=== PATIENT | female | born 1955 | race Caucasian/White ===

== ENCOUNTER 2021-08-31 17:52 | Inpatient (IN) ==
[2021-08-31] MEDS ORDERED: NS 0.9% 1000 ml BAG 1,000 ML IV ONE (18:52)
[2021-08-31 19:00] LABS: ABS Eosinophils 0.1 10^3/ul (0-0.6); ABS Lymphocytes 1.5 10^3/ul (1.0-4.8); ABS Monocytes 0.4 10^3/ul (0-0.8); ABS Neutrophils 3.6 10^3/ul (1.5-7.7); Eosinophil % 1.7 %; Hematocrit 39 % (35-47); Hemoglobin 13.2 g/dL (12.0-16.0); Lymphocyte % 26.5 %; Mean Corpuscular HGB Conc 34 g/dL (31-36); Mean Corpuscular Hemoglobin 31 pg (27-31); Mean Corpuscular Volume 93 fL (80-97); Mean Platelet Volume 7.3 fL (7.4-10.4); Nucleated Red Blood Cells % 0.1; Platelet Count 287 10^3/uL (150-450); Red Blood Count 4.25 10^6 /uL (3.70-4.87); Red Cell Distribution Width 14 % (10-15); White Blood Count 5.7 10^3/uL (3.5-10.8)
[2021-08-31 19:11] LABS: INR 0.98 (0.86-1.15)
[2021-08-31 19:23] LABS: High Sens Troponin Baseline 3 pg/mL (<15)
[2021-08-31 19:44] LABS: ALT 10 U/L (7-52); AST 17 U/L (13-39); Albumin 1.9 g/dL (3.2-5.2); Albumin/Globulin Ratio 1.7 (1-3); Alkaline Phosphatase 31 U/L (35-149); Blood Urea Nitrogen 5 mg/dL (6-24); Globulin 1.1 g/dL (2-4); Glucose 53 mg/dL (70-100); Sodium 140 mmol/L (135-145)
[2021-08-31 19:50] LABS: HCG Pregnancy 1.96 mIU/mL
[2021-08-31 19:51] LABS: Anion Gap 6 mmol/L (2-11); CO2 Carbon Dioxide 14 mmol/L (22-32); Chloride 120 mmol/L (101-111); Magnesium 0.9 mg/dL (1.9-2.7); Potassium 2.2 mmol/L (3.5-5.0)
[2021-08-31] MEDS ORDERED: Potassium Chlor 20 meq TAB.ER PO ONE (19:53)
[2021-08-31 20:13] LABS: Acetaminophen < 15 mcg/mL; Alcohol, S 123 mg/dL (<13); Salicylate < 2.50 mg/dL (<30)
[2021-08-31 20:29] LABS: Lipase 21 U/L (11.0-82.0); eGFR CKD-EPI 117.6 (>60)
[2021-08-31 20:29] LABS: High Sensitivity Troponin 1 Hr < 3 pg/mL (<15)
[2021-08-31 20:48] LABS: Calcium < 4.0 mg/dL (8.6-10.3)
[2021-08-31 21:06] LABS: Albumin 3.7 g/dL (3.2-5.2); CO2 Carbon Dioxide 22 mmol/L (22-32); Calcium 7.8 mg/dL (8.6-10.3); Chloride 99 mmol/L (101-111); Sodium 130 mmol/L (135-145)
[2021-08-31 21:12] LABS: ALT 18 U/L (7-52); Albumin/Globulin Ratio 1.5 (1-3); Alkaline Phosphatase 61 U/L (35-149); Anion Gap 9 mmol/L (2-11); Blood Urea Nitrogen 9 mg/dL (6-24); Globulin 2.5 g/dL (2-4); Glucose 94 mg/dL (70-100); Total Protein 6.2 g/dL (6.4-8.9); eGFR CKD-EPI 102.1 (>60)
[2021-08-31] MEDS ORDERED: Magnesium Sulfate 2 gm BAG 2 GM/50 ML BAG IVPB ONE (21:40)
[2021-08-31] MEDS: KCL 20 MEQ/100 ML IVPREMIX 20 MEQ/100 ML BAG IV SCH (21:57)
[2021-08-31 22:34] LABS: ALT 18 U/L (7-52); Albumin 3.5 g/dL (3.2-5.2); Albumin/Globulin Ratio 1.6 (1-3); Alkaline Phosphatase 53 U/L (35-149); Blood Urea Nitrogen 8 mg/dL (6-24); CO2 Carbon Dioxide 21 mmol/L (22-32); Calcium 7.2 mg/dL (8.6-10.3); Chloride 102 mmol/L (101-111); Globulin 2.2 g/dL (2-4); Glucose 92 mg/dL (70-100); Sodium 130 mmol/L (135-145); Total Protein 5.7 g/dL (6.4-8.9); eGFR CKD-EPI 109.8 (>60)
[2021-08-31 22:40] LABS: Anion Gap 7 mmol/L (2-11)
[2021-08-31 22:46] LABS: Urine Appearance Clear; Urine Bilirubin Negative (Negative); Urine Blood Negative (Negative); Urine Color Straw; Urine Glucose Negative (Negative); Urine Ketones Negative (Negative); Urine Nitrite Negative (Negative); Urine Protein Negative (Negative); Urine Specific Gravity 1.005 (1.002-1.030); Urine Urobilinogen Negative (Negative)
[2021-08-31] MEDS ORDERED: Ondansetron 4 mg VIAL 2 MG/ML 2 ml VIAL IV PRN (22:47)
[2021-08-31 22:48] LABS: TSH Ultra Thyroid Stim Horm 4.16 mcIU/mL (0.34-5.60)
[2021-08-31] MEDS ORDERED: Thiamine 100 MG/ML 2 ml VIAL (200 mg) IM ONE (22:52)
[2021-08-31 23:02] LABS: Osmolality Serum 305 mOsm/kg (275-295)
[2021-08-31 23:06] LABS: Urine Benzodiazepine Screen None Detected (None Detect); Urine Cannabinoids Screen None Detected (None Detect); Urine Opiates Screen None Detected (None Detect)
[2021-08-31 23:38] LABS: Magnesium 2.2 mg/dL (1.9-2.7); Potassium Redraw 4.5 mmol/L (3.5-5.0)
[2021-09-01] MEDS: Enoxaparin 40 MG/0.4 ML SYR SUBCUT SCH ×2 (00:10→22:58)
[2021-09-01] MEDS: KCL 20 MEQ/100 ML IVPREMIX 20 MEQ/100 ML BAG IV SCH (03:41)
[2021-09-01 06:54] LABS: Calcium 8.7 mg/dL (8.6-10.3); Magnesium 2.2 mg/dL (1.9-2.7); Potassium 4.9 mmol/L (3.5-5.0); eGFR CKD-EPI 95.9 (>60)
[2021-09-01] MEDS: Albuterol HFA INHALER 8 gm MDI INH SCH ×5 (09:37→22:41)
[2021-09-01] MEDS: DULoxetine DR 60 mg CAP PO SCH (09:43)
[2021-09-01] MEDS: Multivitamins/Minerals TAB PO SCH (09:43)
[2021-09-01] MEDS ORDERED: Al Hydrox/Mg Hydrox/Simet LIQ 30 ML UDC PO PRN (16:12)
[2021-09-01] MEDS: Mometasone/Formoter 200/5 MDI INH SCH (22:41)
[2021-09-02] MEDS: Albuterol HFA INHALER 8 gm MDI INH SCH ×7 (06:37→21:54)
[2021-09-02 07:33] LABS: ABS Basophils 0.1 10^3/ul (0-0.2); ABS Eosinophils 0.1 10^3/ul (0-0.6); ABS Lymphocytes 1.2 10^3/ul (1.0-4.8); ABS Monocytes 0.4 10^3/ul (0-0.8); Eosinophil % 3.9 %; Hematocrit 34 % (35-47); Hemoglobin 11.8 g/dL (12.0-16.0); Lymphocyte % 30.9 %; Mean Corpuscular HGB Conc 35 g/dL (31-36); Mean Corpuscular Hemoglobin 32 pg (27-31); Mean Corpuscular Volume 93 fL (80-97); Platelet Count 239 10^3/uL (150-450); Red Blood Count 3.65 10^6 /uL (3.70-4.87); Red Cell Distribution Width 14 % (10-15); White Blood Count 3.8 10^3/uL (3.5-10.8)
[2021-09-02 07:58] LABS: Calcium 9.1 mg/dL (8.6-10.3); Potassium 4.3 mmol/L (3.5-5.0); eGFR CKD-EPI 89.7 (>60)
[2021-09-02] MEDS ORDERED: Multivitamins/Minerals TAB PO SCH (09:00)
[2021-09-02] MEDS: Mometasone/Formoter 200/5 MDI INH SCH ×2 (09:16→19:32)
[2021-09-02] MEDS: DULoxetine DR 60 mg CAP PO SCH (09:17)
[2021-09-02] MEDS: Multivitamins/Minerals TAB PO SCH (09:20)
[2021-09-02] MEDS: Enoxaparin 40 MG/0.4 ML SYR SUBCUT SCH (21:53)
[2021-09-03] MEDS: Albuterol HFA INHALER 8 gm MDI INH SCH ×3 (04:56→11:05)
[2021-09-03 08:29] LABS: Folate > 20.00 ng/mL (5.90-24.80)
[2021-09-03 08:30] LABS: Vitamin B12 716 pg/mL (180-914)
[2021-09-03] MEDS: DULoxetine DR 60 mg CAP PO SCH (09:24)
[2021-09-03] MEDS: Mometasone/Formoter 200/5 MDI INH SCH ×2 (09:24→21:56)
[2021-09-03] MEDS: Multivitamins/Minerals TAB PO SCH (09:26)
[2021-09-03] MEDS ORDERED: Albuterol HFA INHALER 8 gm MDI INH PRN (22:52)
[2021-09-04] MEDS: Enoxaparin 40 MG/0.4 ML SYR SUBCUT SCH (00:21)
[2021-09-04] MEDS: Albuterol HFA INHALER 8 gm MDI INH SCH (02:21)
[2021-09-04] MEDS: Mometasone/Formoter 200/5 MDI INH SCH ×2 (06:14→21:50)
[2021-09-04] MEDS: DULoxetine DR 60 mg CAP PO SCH (08:56)
[2021-09-04] MEDS: Multivitamins/Minerals TAB PO SCH (08:57)
[2021-09-05] MEDS: Enoxaparin 40 MG/0.4 ML SYR SUBCUT SCH ×2 (09:43→22:24)
[2021-09-05] MEDS: Multivitamins/Minerals TAB PO SCH (10:58)
[2021-09-05] MEDS: DULoxetine DR 60 mg CAP PO SCH (10:58)
[2021-09-05] MEDS: Mometasone/Formoter 200/5 MDI INH SCH ×2 (10:59→21:57)
[2021-09-06] MEDS: Mometasone/Formoter 200/5 MDI INH SCH ×2 (07:25→20:04)
[2021-09-06] MEDS: DULoxetine DR 60 mg CAP PO SCH (09:25)
[2021-09-06] MEDS: Multivitamins/Minerals TAB PO SCH (09:25)
[2021-09-06] MEDS: Enoxaparin 40 MG/0.4 ML SYR SUBCUT SCH (21:16)
[2021-09-07] MEDS: DULoxetine DR 60 mg CAP PO SCH (09:44)
[2021-09-07] MEDS: Multivitamins/Minerals TAB PO SCH (09:46)
[2021-09-07] MEDS: Mometasone/Formoter 200/5 MDI INH SCH ×2 (09:46→21:27)
[2021-09-07] MEDS: Enoxaparin 40 MG/0.4 ML SYR SUBCUT SCH (21:32)
[2021-09-08] MEDS: Mometasone/Formoter 200/5 MDI INH SCH (08:52)
[2021-09-08] MEDS: DULoxetine DR 60 mg CAP PO SCH (08:53)
[2021-09-08] MEDS: Multivitamins/Minerals TAB PO SCH (08:55)
[2021-09-08 09:46] VITALS: BP 146/77
== END 2021-09-08 12:05 | disposition home or self-care (01) | DRG 885 ==
LOC: ED 17:52 → EDHOLD 22:48 → SUATTDRO 22:48 → ICU 09-01 07:50 → BSU 09-01 13:04 → EDHOLD 09-01 14:00 → BSU 09-01 15:39
PROVIDERS: ADMIT Psychiatry & Neurology Psychiatry; ATTEND Psychiatry & Neurology Psychiatry

== ENCOUNTER 2023-02-23 14:59 | Inpatient (IN) ==
[2023-02-23] MEDS ORDERED: Ondansetron 4 mg VIAL 2 MG/ML 2 ml VIAL IV ONE ×2 (15:44→20:44)
[2023-02-23] MEDS ORDERED: LORazepam 2 mg VIAL 1 ml IV PUSH ONE ×2 (15:57→17:34)
[2023-02-23] MEDS ORDERED: Lorazepam PYXIS KEY PRN ×2 (15:57→17:34)
[2023-02-23] MEDS ORDERED: D5NS 0.9% 1000 ml BAG 1,000 ML IV ONE (15:58)
[2023-02-23] MEDS ORDERED: LORazepam 2 mg VIAL 1 ml ONE (16:18)
[2023-02-23 17:41] LABS: ABS Lymphocytes 1.1 10^3/uL (1.0-4.8); ABS Monocytes 0.6 10^3/uL (0.0-0.9); ABS Neutrophils 8.6 10^3/uL (1.5-7.6); Eosinophil % 0.4 %; Hematocrit 37.1 % (35-45); Hemoglobin 13.2 g/dL (11.5-14.3); Lymphocyte % 10.7 %; Mean Corpuscular Hemoglobin 32.5 pg (27-33); Mean Corpuscular Hgb Conc 35.5 g/dL (31-36); Mean Corpuscular Volume 91.3 fL (80-97); Mean Platelet Volume 7.3 fL (7.5-11.2); Platelet Count 324 10^3/uL (150-450); Red Blood Count 4.06 10^6/uL (3.63-4.92); White Blood Count 10.3 10^3/uL (3.8-11.8)
[2023-02-23 17:51] LABS: Urine Appearance Clear; Urine Bilirubin Negative (Negative); Urine Blood Negative (Negative); Urine Color Yellow; Urine Glucose 3+(>=500 mg/dL) (Negative); Urine Ketones Trace (Negative); Urine Nitrite Negative (Negative); Urine Protein Negative (Negative); Urine Specific Gravity 1.007 (1.002-1.030); Urine Urobilinogen Negative (Negative)
[2023-02-23 17:54] LABS: INR 1.01 (0.83-1.13)
[2023-02-23 18:03] LABS: Albumin 3.9 g/dL (3.2-5.2); Albumin/Globulin Ratio 1.7 (1-3); C Reactive Protein 2.29 mg/L (<8.01); Creatinine, Serum 0.52 mg/dL (0.51-0.95); Globulin 2.3 g/dL (2-4); Magnesium 1.4 mg/dL (1.9-2.7); Phosphorus 1.5 mg/dL (2.5-5.0); Potassium 3.4 mmol/L (3.5-5.0); Total Bilirubin 0.5 mg/dL (0.2-1.0); Total Protein 6.2 g/dL (6.4-8.9); eGFR CKD-EPI 102.4 (>60)
[2023-02-23] MEDS ORDERED: Thiamine 100 MG/ML 2 ml VIAL (200 mg) IM ONE (18:21)
[2023-02-23 18:56] LABS: ALT 16 U/L (7-52); Albumin/Globulin Ratio 1.6 (1-3); Alkaline Phosphatase 58 U/L (35-149); Amylase 38 U/L (29-103); Globulin 2.5 g/dL (2-4); Lipase 10 U/L (11.0-82.0); Total Bilirubin 0.5 mg/dL (0.2-1.0); Total Protein 6.5 g/dL (6.4-8.9)
[2023-02-23] MEDS ORDERED: LORazepam 2 mg VIAL 1 ml IV PUSH SCH (19:00)
[2023-02-23 19:01] LABS: High Sensitivity Troponin 1 Hr 18 pg/mL (<15)
[2023-02-23 20:19] LABS: Calcium 8.4 mg/dL (8.6-10.3); Creatinine, Serum 0.5 mg/dL (0.51-0.95); Direct Bilirubin 0.1 mg/dL (0.03-0.18); Indirect Bilirubin 0.5 mg/dL (0.3-1.0); Potassium 3.4 mmol/L (3.5-5.0); Total Bilirubin 0.6 mg/dL (0.2-1.0); eGFR CKD-EPI 103.4 (>60)
[2023-02-23] MEDS: Enoxaparin 40 MG/0.4 ML SYR SUBCUT SCH (20:54)
[2023-02-23 21:08] LABS: Urine Osmo 359 mOsm/kg (150-1150)
[2023-02-24] MEDS ORDERED: Magnesium Sulfate 2 gm BAG 2 GM/50 ML BAG IVPB ONE (01:23)
[2023-02-24] MEDS ORDERED: Ondansetron 4 mg VIAL 2 MG/ML 2 ml VIAL IV ONE ×2 (02:05→10:34)
[2023-02-24 04:45] LABS: ABS Lymphocytes 0.9 10^3/uL (1.0-4.8); ABS Monocytes 0.5 10^3/uL (0.0-0.9); ABS Nucleated RBC 0.03 10^3/ul; Eosinophil % 0.6 %; Hematocrit 36.6 % (35-45); Hemoglobin 13.2 g/dL (11.5-14.3); Lymphocyte % 11.8 %; Mean Corpuscular Hemoglobin 32.7 pg (27-33); Mean Corpuscular Hgb Conc 36.1 g/dL (31-36); Mean Corpuscular Volume 90.6 fL (80-97); Mean Platelet Volume 7.1 fL (7.5-11.2); Nucleated Red Blood Cells % 0.4 %/100WBC (0.0-0.8); Platelet Count 288 10^3/uL (150-450); Red Blood Count 4.04 10^6/uL (3.63-4.92); Red Cell Distribution Width 13.3 % (12-17); White Blood Count 7.5 10^3/uL (3.8-11.8)
[2023-02-24 05:03] LABS: Calcium 8.5 mg/dL (8.6-10.3); Creatinine, Serum 0.47 mg/dL (0.51-0.95); Potassium 3.6 mmol/L (3.5-5.0); eGFR CKD-EPI 104.9 (>60)
[2023-02-24 07:10] LABS: Magnesium 2.4 mg/dL (1.9-2.7)
[2023-02-24] MEDS: DULoxetine DR 60 mg CAP PO SCH (08:21)
[2023-02-24] MEDS: Multivitamins/Minerals TAB PO SCH (08:21)
[2023-02-24 10:26] LABS: Osmolality Serum 252 mOsm/kg (275-295)
[2023-02-24 10:28] LABS: Urine Osmo 246 mOsm/kg (150-1150)
[2023-02-24 14:38] LABS: Calcium 8.5 mg/dL (8.6-10.3); Creatinine, Serum 0.54 mg/dL (0.51-0.95); Potassium 3.5 mmol/L (3.5-5.0); eGFR CKD-EPI 101.5 (>60)
[2023-02-24 19:47] LABS: Calcium 8.6 mg/dL (8.6-10.3); Creatinine, Serum 0.58 mg/dL (0.51-0.95); Potassium 3.4 mmol/L (3.5-5.0); eGFR CKD-EPI 99.7 (>60)
[2023-02-24] MEDS: Enoxaparin 40 MG/0.4 ML SYR SUBCUT SCH (19:48)
[2023-02-25] MEDS ORDERED: Acetaminophen IV 1 GM/100ML 1,000 MG/100 ML BAG IV ONE (03:49)
[2023-02-25 04:39] LABS: ABS Eosinophils 0.1 10^3/uL (0.0-0.5); ABS Lymphocytes 1.2 10^3/uL (1.0-4.8); ABS Monocytes 0.7 10^3/uL (0.0-0.9); ABS Neutrophils 4.8 10^3/uL (1.5-7.6); ABS Nucleated RBC 0.01 10^3/ul; Eosinophil % 1.1 %; Hematocrit 34.9 % (35-45); Hemoglobin 12.6 g/dL (11.5-14.3); Lymphocyte % 17.7 %; Mean Corpuscular Hemoglobin 32.6 pg (27-33); Mean Corpuscular Hgb Conc 35.9 g/dL (31-36); Mean Corpuscular Volume 90.8 fL (80-97); Mean Platelet Volume 7.1 fL (7.5-11.2); Nucleated Red Blood Cells % 0.1 %/100WBC (0.0-0.8); Platelet Count 248 10^3/uL (150-450); Red Blood Count 3.85 10^6/uL (3.63-4.92); Red Cell Distribution Width 13.4 % (12-17); White Blood Count 6.9 10^3/uL (3.8-11.8)
[2023-02-25 04:54] LABS: Calcium 8.2 mg/dL (8.6-10.3); Creatinine, Serum 0.51 mg/dL (0.51-0.95); Magnesium 1.9 mg/dL (1.9-2.7); Potassium 3.5 mmol/L (3.5-5.0); eGFR CKD-EPI 102.9 (>60)
[2023-02-25] MEDS: Multivitamins/Minerals TAB PO SCH (07:56)
[2023-02-25] MEDS: DULoxetine DR 60 mg CAP PO SCH (07:56)
[2023-02-25 10:06] LABS: Phosphorus 2.7 mg/dL (2.5-5.0)
[2023-02-25] MEDS ORDERED: ACARBOSE 25 MG PO PRN (11:00)
[2023-02-25 16:20] LABS: Calcium 8.6 mg/dL (8.6-10.3); Creatinine, Serum 0.51 mg/dL (0.51-0.95); Potassium 3.7 mmol/L (3.5-5.0); eGFR CKD-EPI 102.9 (>60)
[2023-02-25] MEDS: Enoxaparin 40 MG/0.4 ML SYR SUBCUT SCH (20:58)
[2023-02-26 07:01] LABS: ABS Eosinophils 0.1 10^3/uL (0.0-0.5); ABS Lymphocytes 1.4 10^3/uL (1.0-4.8); ABS Monocytes 1.1 10^3/uL (0.0-0.9); ABS Neutrophils 3.8 10^3/uL (1.5-7.6); Eosinophil % 1.5 %; Hematocrit 34.8 % (35-45); Hemoglobin 12.1 g/dL (11.5-14.3); Lymphocyte % 21.1 %; Mean Corpuscular Hemoglobin 31.9 pg (27-33); Mean Corpuscular Hgb Conc 34.7 g/dL (31-36); Mean Platelet Volume 7.5 fL (7.5-11.2); Platelet Count 256 10^3/uL (150-450); Red Blood Count 3.79 10^6/uL (3.63-4.92); Red Cell Distribution Width 13.1 % (12-17); White Blood Count 6.4 10^3/uL (3.8-11.8)
[2023-02-26 07:17] LABS: Calcium 8.5 mg/dL (8.6-10.3); Creatinine, Serum 0.52 mg/dL (0.51-0.95); Magnesium 1.8 mg/dL (1.9-2.7); Phosphorus 2.8 mg/dL (2.5-5.0); Potassium 3.7 mmol/L (3.5-5.0); eGFR CKD-EPI 102.4 (>60)
[2023-02-26] MEDS: DULoxetine DR 60 mg CAP PO SCH (08:26)
[2023-02-26] MEDS: Multivitamins/Minerals TAB PO SCH (08:27)
[2023-02-26 09:19] LABS: TSH Ultra Thyroid Stim Horm 3.97 mcIU/mL (0.34-5.60)
[2023-02-26 09:30] LABS: Folate > 20.00 ng/mL (5.90-24.80)
[2023-02-26 09:31] LABS: Vitamin B12 > 1450 pg/mL (180-914)
[2023-02-26 13:43] VITALS: BP 136/68
== END 2023-02-26 14:30 | disposition home or self-care (01) | DRG 641 ==
LOC: ED 14:59 → EDHOLD 18:19 → ICU 19:29 → MED 02-25 17:28
PROVIDERS: ADMIT Student in an Organized Health Care Education/Training Program; ATTEND Hospitalist

== ENCOUNTER 2023-03-23 21:16 | Inpatient (IN) ==
[2023-03-23 22:18] LABS: ABS Basophils 0.1 10^3/uL (0.0-0.1); ABS Eosinophils 0.1 10^3/uL (0.0-0.5); ABS Lymphocytes 2.4 10^3/uL (1.0-4.8); ABS Monocytes 0.5 10^3/uL (0.0-0.9); ABS Neutrophils 4.4 10^3/uL (1.5-7.6); Eosinophil % 1.9 %; Hematocrit 39.6 % (35-45); Hemoglobin 13.8 g/dL (11.5-14.3); Lymphocyte % 31.9 %; Mean Corpuscular Hemoglobin 32.5 pg (27-33); Mean Corpuscular Hgb Conc 34.9 g/dL (31-36); Mean Corpuscular Volume 92.9 fL (80-97); Mean Platelet Volume 6.7 fL (7.5-11.2); Platelet Count 317 10^3/uL (150-450); Red Blood Count 4.26 10^6/uL (3.63-4.92); Red Cell Distribution Width 13.3 % (12-17); White Blood Count 7.5 10^3/uL (3.8-11.8)
[2023-03-23 22:35] LABS: ALT 14 U/L (7-52); AST 24 U/L (13-39); Albumin 4.4 g/dL (3.2-5.2); Albumin/Globulin Ratio 1.6 (1-3); Alkaline Phosphatase 98 U/L (35-149); Anion Gap 12 mmol/L (2-16); Blood Urea Nitrogen 4 mg/dL (6-24); CO2 Carbon Dioxide 21 mmol/L (22-32); Calcium 9.2 mg/dL (8.6-10.3); Chloride 96 mmol/L (101-111); Creatinine, Serum 0.51 mg/dL (0.51-0.95); Globulin 2.8 g/dL (2-4); Glucose 93 mg/dL (70-100); Potassium 3.6 mmol/L (3.5-5.0); Sodium 129 mmol/L (135-145); Total Bilirubin 0.4 mg/dL (0.2-1.0); Total Protein 7.2 g/dL (6.4-8.9); eGFR CKD-EPI 102.9 (>60)
[2023-03-23 22:36] LABS: Rapid COVID-19 Molecular Undetected (Undetected)
[2023-03-23 22:37] LABS: Urine Benzodiazepine Screen None Detected (None Detect); Urine Cannabinoids Screen None Detected (None Detect); Urine Opiates Screen None Detected (None Detect)
[2023-03-23 22:40] LABS: Influenza A Molecular Negative (Negative); Influenza B Molecular Negative (Negative)
[2023-03-23 22:43] LABS: Acetaminophen < 15 mcg/mL; Alcohol, S 79 mg/dL (<13); Salicylate < 2.50 mg/dL (<30)
[2023-03-24] MEDS ORDERED: Al Hydrox/Mg Hydrox/Simet LIQ 30 ML UDC PO PRN (01:34)
[2023-03-24] MEDS ORDERED: Lorazepam PYXIS KEY PRN (01:42)
[2023-03-24] MEDS ORDERED: Nicotine GUM 2MG FRUIT FLAVOR PO PRN (02:00)
[2023-03-24] MEDS ORDERED: LORazepam PO 0-6 for WAM protocol PO SCH (02:00)
[2023-03-24] MEDS ORDERED: LORazepam IM 0-6 mg for WAM protocol IM SCH (02:00)
[2023-03-24] MEDS ORDERED: LORazepam 2 mg VIAL 1 ml IM SCH (09:00)
[2023-03-24] MEDS: DULoxetine DR 60 mg CAP PO SCH (11:06)
[2023-03-24] MEDS: Nicotine PATCH 14 MG/24 HR PATCH TRANSDERM SCH (11:07)
[2023-03-24] MEDS: Vitamin THERAPEUTIC TAB PO SCH (11:07)
[2023-03-24] MEDS: FOLIC ACID 1 MG TAB DAILY PO SCH (11:07)
[2023-03-25] MEDS: FOLIC ACID 1 MG TAB DAILY PO SCH (07:13)
[2023-03-25] MEDS: DULoxetine DR 60 mg CAP PO SCH (07:13)
[2023-03-25] MEDS: Vitamin THERAPEUTIC TAB PO SCH (07:13)
[2023-03-25] MEDS: Nicotine PATCH 14 MG/24 HR PATCH TRANSDERM SCH (07:15)
[2023-03-25 07:42] LABS: HDL Cholesterol 86.7 mg/dL
[2023-03-26] MEDS: FOLIC ACID 1 MG TAB DAILY PO SCH (09:14)
[2023-03-26] MEDS: Vitamin THERAPEUTIC TAB PO SCH (09:14)
[2023-03-26] MEDS: DULoxetine DR 60 mg CAP PO SCH (09:14)
[2023-03-26] MEDS: Nicotine PATCH 14 MG/24 HR PATCH TRANSDERM SCH (09:14)
[2023-03-27] MEDS: FOLIC ACID 1 MG TAB DAILY PO SCH (09:10)
[2023-03-27] MEDS: Vitamin THERAPEUTIC TAB PO SCH (09:10)
[2023-03-27] MEDS: Nicotine PATCH 14 MG/24 HR PATCH TRANSDERM SCH (09:10)
[2023-03-27] MEDS: DULoxetine DR 60 mg CAP PO SCH (09:10)
[2023-03-28] MEDS: Vitamin THERAPEUTIC TAB PO SCH (09:06)
[2023-03-28] MEDS: FOLIC ACID 1 MG TAB DAILY PO SCH (09:06)
[2023-03-28] MEDS: DULoxetine DR 60 mg CAP PO SCH (09:06)
[2023-03-28] MEDS: Nicotine PATCH 14 MG/24 HR PATCH TRANSDERM SCH (09:11)
[2023-03-28 09:34] LABS: Albumin 4.6 g/dL (3.2-5.2); Albumin/Globulin Ratio 1.6 (1-3); Creatinine, Serum 0.66 mg/dL (0.51-0.95); Globulin 2.8 g/dL (2-4); Potassium 4.5 mmol/L (3.5-5.0); Total Bilirubin 0.6 mg/dL (0.2-1.0); Total Protein 7.4 g/dL (6.4-8.9); eGFR CKD-EPI 96.7 (>60)
[2023-03-28 10:26] LABS: TSH Ultra Thyroid Stim Horm 13.48 mcIU/mL (0.34-5.60)
[2023-03-28 10:28] LABS: Free T4 1.11 ng/dL (0.61-1.12)
[2023-03-29] MEDS: FOLIC ACID 1 MG TAB DAILY PO SCH (09:04)
[2023-03-29] MEDS: Vitamin THERAPEUTIC TAB PO SCH (09:04)
[2023-03-29] MEDS: DULoxetine DR 60 mg CAP PO SCH (09:04)
[2023-03-29] MEDS: Nicotine PATCH 14 MG/24 HR PATCH TRANSDERM SCH (09:06)
[2023-03-30] MEDS: FOLIC ACID 1 MG TAB DAILY PO SCH (09:04)
[2023-03-30] MEDS: DULoxetine DR 60 mg CAP PO SCH (09:04)
[2023-03-30] MEDS: Vitamin THERAPEUTIC TAB PO SCH (09:05)
[2023-03-30] MEDS: Nicotine PATCH 14 MG/24 HR PATCH TRANSDERM SCH (09:07)
[2023-03-30 10:18] VITALS: BP 120/64
[2023-03-31] MEDS: Vitamin THERAPEUTIC TAB PO SCH (07:23)
[2023-03-31] MEDS: DULoxetine DR 60 mg CAP PO SCH (07:23)
[2023-03-31] MEDS: FOLIC ACID 1 MG TAB DAILY PO SCH (07:24)
[2023-03-31] MEDS: Nicotine PATCH 14 MG/24 HR PATCH TRANSDERM SCH (07:25)
== END 2023-03-31 08:05 | DRG 882 ==
LOC: ED 21:16 → BSU 03-24 01:18
PROVIDERS: ADMIT Psychiatry & Neurology Psychiatry; ATTEND Psychiatry & Neurology Psychiatry